=== PATIENT | male | born 1980 | race Caucasian/White ===

== ENCOUNTER 2017-10-18 19:59 | Emergency (ER) | payer SELFPAY ==
[~2017-10-18] VITALS: Ht 185.4 cm; Wt 78.0 kg
[2017-10-18 20:07] VITALS: BP 140/82; PULSE 93; RESP 16; TEMP 97.9; O2SAT 94
[2017-10-18] MEDS ORDERED: SODIUM CHLOR 0.9% 1000 ML INJ 1,000 ML IV ONE (20:12)
[2017-10-18] MEDS ORDERED: SODIUM CHLORIDE 0.9% FLUSH 10 ML FLUSH IVF PRN (20:15)
[2017-10-18 20:41] VITALS: O2SAT 96
--- NOTE | 2017-10-18 20:44 | PD ---
HPI Chief Complaint: OD/ Ingestion Time Seen by Provider: 20:12 Travel History International Travel<30 days: No Contact w/Intl Traveler<30days: No Traveled to known affect area: No History of Present Illness HPI 37-year-old male presents to the emergency department by EMS transport after having a syncopal episode shortly after starting fentanyl and drinking alcohol. Patient estimates episode occurred approximate 1 hour prior to arrival to the emergency department. Patient states this is happening before. Patient presents with the paramedics voluntarily for evaluation. Patient does not report any homicidal or suicidal ideation. Patient denies any head pain pain back pain chest pain abdominal pain short of breath other extremity pain or extremity injury or pain. PFSH Past Medical History Narrative Medical anxiety depression substance abuse alcohol use nursing notes reviewed Anxiety: Yes Depression: Yes Herniated Disk: Yes Past Surgical History Surgical History: No Previous Surgery Social History Alcohol Use: Yes (pt states "I go on binges sometimes none and sometimes until im drunk") Tobacco Use: Yes (1/2 ppd) Substance Use: Yes (heroin, cocaine, marijuana) Allergies-Medications (Allergen,Severity, Reaction): Coded Allergies: No Known Allergies (Unverified , 10/18/17) Reported Meds & Prescriptions Reported Meds & Active Scripts Active No Active Prescriptions or Reported Medications Review of Systems Except as stated in HPI: all other systems reviewed are Neg Physical Exam Narrative GENERAL: SKIN: Warm and dry. HEAD: Normocephalic. EYES: No scleral icterus. No injection or drainage. NECK: Supple, trachea midline. No JVD or lymphadenopathy. CARDIOVASCULAR: Regular rate and rhythm without murmurs, gallops, or rubs. RESPIRATORY: Breath sounds equal bilaterally. No accessory muscle use. GASTROINTESTINAL: Abdomen soft, non-tender, nondistended. MUSCULOSKELETAL: No cyanosis, or edema. BACK: Nontender without obvious deformity. No CVA tenderness. Data Data Last Documented VS Vital Signs Date Time Temp Pulse Resp B/P (MAP) Pulse Ox O2 Delivery O2 Flow Rate FiO2 10/18/17 20:41 96 Room Air 10/18/17 20:07 97.9 93 16 140/82 (101) Orders Orders Electrocardiogram (10/18/17 20:12) Complete Blood Count With Diff (10/18/17 20:12) Comprehensive Metabolic Panel (10/18/17 20:12) Prothrombin Time / Inr (Pt) (10/18/17 20:12) Act Partial Throm Time (Ptt) (10/18/17 20:12) Urinalysis - C+S If Indicated (10/18/17 20:12) Chest, Single Ap (10/18/17 20:12) Blood Glucose (10/18/17 20:12) Iv Access Insert/Monitor (10/18/17 20:12) Ecg Monitoring (10/18/17 20:12) Oximetry (10/18/17 20:12) Sodium Chloride 0.9% Flush (Ns Flush) (10/18/17 20:15) Sodium Chlor 0.9% 1000 Ml Inj (Ns 1000 M (10/18/17 20:12) Drug Screen, Random Urine (10/18/17 20:12) Alcohol (Ethanol) (10/18/17 20:12) Salicylates (Aspirin) (10/18/17 20:12) Tylenol (Acetaminophen) (10/18/17 20:12) Magnesium (Mg) (10/18/17 20:12) Labs Laboratory Tests Test 10/18/17 20:30 10/18/17 21:20 White Blood Count 11.9 TH/MM3 Red Blood Count 4.94 MIL/MM3 Hemoglobin 16.1 GM/DL Hematocrit 47.5 % Mean Corpuscular Volume 96.2 FL Mean Corpuscular Hemoglobin 32.5 PG Mean Corpuscular Hemoglobin Concent 33.8 % Red Cell Distribution Width 14.0 % Platelet Count 262 TH/MM3 Mean Platelet Volume 7.8 FL Neutrophils (%) (Auto) 78.3 % Lymphocytes (%) (Auto) 9.9 % Monocytes (%) (Auto) 7.3 % Eosinophils (%) (Auto) 3.8 % Basophils (%) (Auto) 0.7 % Neutrophils # (Auto) 9.3 TH/MM3 Lymphocytes # (Auto) 1.2 TH/MM3 Monocytes # (Auto) 0.9 TH/MM3 Eosinophils # (Auto) 0.5 TH/MM3 Basophils # (Auto) 0.1 TH/MM3 CBC Comment DIFF FINAL Differential Comment Prothrombin Time 10.2 SEC Prothromb Time International Ratio 1.0 RATIO Activated Partial Thromboplast Time 25.3 SEC Blood Urea Nitrogen 15 MG/DL Creatinine 1.28 MG/DL Random Glucose 95 MG/DL Total Protein 8.2 GM/DL Albumin 4.1 GM/DL Calcium Level 8.6 MG/DL Magnesium Level 2.3 MG/DL Alkaline Phosphatase 79 U/L Aspartate Amino Transf (AST/SGOT) 15 U/L Alanine Aminotransferase (ALT/SGPT) 23 U/L Total Bilirubin 0.4 MG/DL Sodium Level 137 MEQ/L Potassium Level 4.2 MEQ/L Chloride Level 100 MEQ/L Carbon Dioxide Level 25.8 MEQ/L Anion Gap 11 MEQ/L Estimat Glomerular Filtration Rate 64 ML/MIN Salicylates Level LESS THAN 1.7 MG/DL Acetaminophen Level LESS THAN 2.0 MCG/ML Ethyl Alcohol Level LESS THAN 3 MG/DL Urine Color YELLOW Urine Turbidity CLEAR Urine pH 6.0 Urine Specific Oliver 1.028 Urine Protein 30 mg/dL Urine Glucose (UA) NEG mg/dL Urine Ketones NEG mg/dL Urine Occult Blood NEG Urine Nitrite NEG Urine Bilirubin NEG Urine Urobilinogen LESS THAN 2.0 MG/DL Urine Leukocyte Esterase NEG Urine RBC 2 /hpf Urine WBC 2 /hpf Urine Squamous Epithelial Cells <1 /hpf Urine Hyaline Casts 20 /lpf Urine Mucus FEW /lpf Microscopic Urinalysis Comment CULT NOT INDICATED Urine Opiates Screen NEG Urine Barbiturates Screen NEG Urine Amphetamines Screen NEG Urine Benzodiazepines Screen NEG Urine Cocaine Screen POS Urine Cannabinoids Screen POS MDM Medical Decision Making Medical Screen Exam Complete: Yes Emergency Medical Condition: Yes Medical Record Reviewed: Yes Interpretation(s) EKG normal sinus rhythm rate [address] elevation or injury pattern noted Differential Diagnosis Polysubstance ingestion, opiate overdose, alcohol intoxication, electronic disturbance, arrhythmia Narrative Course patient placed on upholstery trimmer IV with continuous pulse oximetry access obtained specimens collected and sent for resulting At 9:30 PM patient now reports that he was actually not the person that 911 was called for regarding loss of consciousness that was actually one of his friend' s bed for "legal reasons"he reportedly took responsibility for the episode of passing out and then when the paramedics insisted on patient being evaluated or coming by my hours act he voluntarily agreed to be evaluated in the emergency department. Patient reports that he feels well now he would like to be discharged or Aleve now he has been encouraged to stay at least until his evaluation is complete and then he'll be encouraged to follow-up with [facility] and discontinue use of opiate abuse. Patient states he is interested in detox resources. Patient is cooperative and willing to stay to complete his evaluation. GCS 15. At 9:55 PM laboratory values resulted and found to be grossly within normal range except for urine drug screen which is positive for cocaine and cannabinoids. Patient remains GCS of 15 able to tolerate oral hydration well. Vital signs remain in normal range. Patient remains cooperative. Discussion with patient regarding need for pursuing detox was conducted in length patient is aware that he does have a dependency issue and does need detox program information from [facility] provided. Patient again is not suicidal or homicidal. Diagnosis Primary Impression: Polysubstance abuse Referrals: [facility] day Patient Instructions: General Instructions Scripts No Active Prescriptions or Reported Meds Disposition: DISCHARGE HOME Condition: Stable Myah Echevarria MD Oct 18, 2017 20:44
[2017-10-18 20:56] LABS: AUTOMATED NEUTROPHIL # 9.3 TH/MM3 (1.8-7.7); BASOPHIL # 0.1 TH/MM3 (0-0.2); BASOPHIL % 0.7 % (0.0-2.0); EOSINOPHIL # 0.5 TH/MM3 (0-0.4); EOSINOPHIL % 3.8 % (0.0-4.0); HEMATOCRIT 47.5 % (39.0-51.0); HEMOGLOBIN 16.1 GM/DL (13.0-17.0); LYMPH % 9.9 % (9.0-44.0); LYMPHOCYTE # 1.2 TH/MM3 (1.0-4.8); MEAN CELL VOLUME 96.2 FL (80.0-100.0); MEAN CORPUSCULAR HEMOGLOBIN 32.5 PG (27.0-34.0); MEAN CORPUSCULAR HGB CONC 33.8 % (32.0-36.0); MEAN PLATELET VOLUME 7.8 FL (7.0-11.0); MONO % 7.3 % (0.0-8.0); MONOCYTE # 0.9 TH/MM3 (0-0.9); NEUT % 78.3 % (16.0-70.0); PLATELET COUNT 262 TH/MM3 (150-450); RED BLOOD COUNT 4.94 MIL/MM3 (4.50-5.90); WHITE BLOOD COUNT 11.9 TH/MM3 (4.0-11.0)
[2017-10-18 21:07] LABS: ALBUMIN 4.1 GM/DL (3.4-5.0); AST (GOT) 15 U/L (15-37); BICARBONATE 25.8 MEQ/L (21.0-32.0); BLOOD UREA NITROGEN 15 MG/DL (7-18); CALCIUM 8.6 MG/DL (8.5-10.1); CHLORIDE 100 MEQ/L (98-107); CREATININE 1.28 MG/DL (0.60-1.30); GLOMERULAR FILTRATION RATE 64 ML/MIN (>89); GLUCOSE,RANDOM 95 MG/DL (74-106); MAGNESIUM 2.3 MG/DL (1.5-2.5); PROTHROMBIN TIME - PATIENT 10.2 SEC (9.8-11.6); SODIUM (NA) 137 MEQ/L (136-145)
[2017-10-18 21:08] LABS: ALT (GPT) 23 U/L (12-78)
[2017-10-18 21:10] LABS: ALKALINE PHOSPHATASE 79 U/L (45-117); TOTAL BILIRUBIN ADULT 0.4 MG/DL (0.2-1.0); TOTAL PROTEIN 8.2 GM/DL (6.4-8.2)
--- NOTE | 2017-10-18 21:14 | RADRPT ---
EXAM DATE/TIME: 10/18/2017 20:47 [facility] COMPARISON: No previous studies available for comparison. INDICATIONS : Syncope today. MEDICAL HISTORY : Anxiety. SURGICAL HISTORY : None. ENCOUNTER: Initial ACUITY: 1 day PAIN SCORE: 0/10 LOCATION: Bilateral chest FINDINGS: A single view of the chest demonstrates the lungs to be symmetrically aerated without evidence of mas s, infiltrate or effusion. The cardiomediastinal contours are unremarkable. Osseous structures are intact. CONCLUSION: No acute disease. Oniel Bravo MD on October 18, 2017 at 21:12 Board Certified Radiologist. This report was verified electronically.
[2017-10-18 21:17] LABS: ACETAMINOPHEN LESS THAN 2.0 MCG/ML (10.0-30.0)
[2017-10-18 21:35] LABS: BILIRUBIN, URINE NEG (NEG); BLOOD, URINE NEG (NEG); GLUCOSE,URINE NEG (NEG); HYALINE CAST, URINE 20 /lpf (RARE); KETONE, URINE NEG (NEG); MUCUS URINE FEW /lpf (OCC); NITRITE,URINE NEG (NEG); SQUAMOUS EPITHELIAL CELL URINE <1 /hpf (0-5); URINE COLOR YELLOW (YELLW/STRAW); URINE LEUKOCYTE ESTERASE NEG (NEG)
--- NOTE | 2017-10-18 22:23 | EKG ---
Date Performed: 10/18/2017 Time Performed: 20:36:50 PTAGE: 37 years EKG: Sinus rhythm WITH SHORT UT INTERVAL BORDERLINE ECG NO PREVIOUS TRACING DOCTOR: Jose Aguilar Interpretating Date/Time 10/18/2017 22:22:33
== END 2017-10-18 22:13 | disposition home or self-care (01) ==
LOC: NEPC 19:59
DX: F14.10 Cocaine abuse, uncomplicated (principal); F12.10 Cannabis abuse, uncomplicated; F11.10 Opioid abuse, uncomplicated; R55 Syncope and collapse; F41.9 Anxiety disorder, unspecified; F32.9 Major depressive disorder, single episode, unspecified; F17.200 Nicotine dependence, unspecified, uncomplicated
CPT/HCPCS: 71010; 80053; 80307; 81001; 83735; 85025; 85610; 85730; 93005; 96360; 99285; J7030